=== PATIENT | male | born 1990 | race Caucasian/White ===

== ENCOUNTER 2021-06-18 16:16 | Inpatient (IN) | payer OTHER ==
[2021-06-18 16:59] VITALS: BMI 21.2
[2021-06-18] MEDS ORDERED: MENTHOL/PHENOL 1 EACH UD MM PRN (19:31)
[2021-06-18] MEDS ORDERED: ONDANSETRON *ODT* 4 MG TABLET SL PRN (19:31)
[2021-06-18] MEDS ORDERED: METHOCARBAMOL 500 MG TABLET PO PRN (19:31)
[2021-06-18] MEDS ORDERED: IBUPROFEN 400 MG TABLET (FP) PO PRN (19:31)
[2021-06-18] MEDS ORDERED: BISMUTH SUBSALICYLATE 524 MG/30 ML PO PRN (19:31)
[2021-06-18] MEDS ORDERED: MAGNESIUM HYDROX 2400MG/30ML ORAL SUSPENSION 30 ML CUP PO PRN (19:31)
[2021-06-18] MEDS ORDERED: LOPERAMIDE HCL 2 MG CAPSULE PO PRN (19:31)
[2021-06-18] MEDS ORDERED: ACETAMINOPHEN 325 MG TABLET (FP) PO PRN ×2 (19:31)
[2021-06-18] MEDS ORDERED: MAGNESIUM CITRATE 300 ML BOTTLE PO PRN (19:31)
[2021-06-18] MEDS ORDERED: MAG HYDROX/AL HYDROX/SIMETH 30 ML UNIT-DOSE CUP PO PRN (19:31)
[2021-06-18] MEDS ORDERED: chlordiazePOXIDE HCL 25 MG CAPSULE PO PRN (19:33)
[2021-06-18] MEDS ORDERED: chlordiazePOXIDE HCL 25 MG CAPSULE PO ONE (19:33)
[2021-06-18] MEDS ORDERED: BUPRENORPHINE HCL 2 MG TAB.SUBL SL SCH (19:45)
[2021-06-18] MEDS ORDERED: chlordiazePOXIDE HCL 25 MG CAPSULE ONE (21:00)
[2021-06-18] MEDS ORDERED: QUEtiapine FUMARATE 100 MG TABLET (FP) PO ONE (21:43)
[2021-06-18] MEDS: THIAMINE HCL 100 MG TABLET (FP) PO SCH (21:59)
[2021-06-18] MEDS: chlordiazePOXIDE HCL 25 MG CAPSULE PO SCH (22:08)
[2021-06-19] MEDS: chlordiazePOXIDE HCL 25 MG CAPSULE PO SCH ×4 (05:37→22:16)
[2021-06-19] MEDS: PRENATAL VITAMINS W/ FOLIC ACID TABLET (FP) PO SCH (10:08)
[2021-06-19] MEDS: BUPRENORPHINE/NALOXONE 2 MG/0.5 MG FILM PACKET SL SCH ×5 (10:11→22:18)
[2021-06-19] MEDS: NICOTINE 10 MG CARTRIDGE (INHALER) IH PRN ×2 (18:24→22:35)
[2021-06-19] MEDS: QUEtiapine FUMARATE 100 MG TABLET (FP) PO SCH (22:18)
[2021-06-19] MEDS: THIAMINE HCL 100 MG TABLET (FP) PO SCH (22:18)
[2021-06-20] MEDS: chlordiazePOXIDE HCL 25 MG CAPSULE PO SCH ×4 (06:17→22:09)
[2021-06-20] MEDS: BUPRENORPHINE/NALOXONE 2 MG/0.5 MG FILM PACKET SL SCH ×4 (10:34→22:09)
[2021-06-20] MEDS: PRENATAL VITAMINS W/ FOLIC ACID TABLET (FP) PO SCH (10:34)
[2021-06-20 11:09] LABS: SARS-CoV-2 NAA Not Detected (Not Detected)
[2021-06-20] MEDS: NICOTINE 10 MG CARTRIDGE (INHALER) IH PRN ×2 (14:17→22:09)
[2021-06-20] MEDS: THIAMINE HCL 100 MG TABLET (FP) PO SCH (22:09)
[2021-06-20] MEDS: QUEtiapine FUMARATE 100 MG TABLET (FP) PO SCH (22:09)
[2021-06-21] MEDS ORDERED: chlordiazePOXIDE HCL 10 MG CAPSULE PO PRN
[2021-06-21] MEDS: chlordiazePOXIDE HCL 10 MG CAPSULE PO SCH ×4 (05:35→22:09)
[2021-06-21] MEDS: PRENATAL VITAMINS W/ FOLIC ACID TABLET (FP) PO SCH (10:23)
[2021-06-21] MEDS: BUPRENORPHINE/NALOXONE 4 MG/1 MG FILM PACKET SL SCH ×2 (10:24→20:13)
[2021-06-21] MEDS: NICOTINE 10 MG CARTRIDGE (INHALER) IH PRN ×2 (14:14→21:23)
[2021-06-21] MEDS: QUEtiapine FUMARATE 100 MG TABLET (FP) PO SCH (22:10)
[2021-06-21] MEDS: MELATONIN 5 MG TABLETS PO PRN (22:10)
[2021-06-21] MEDS: THIAMINE HCL 100 MG TABLET (FP) PO SCH (22:10)
[2021-06-22] MEDS: chlordiazePOXIDE HCL 10 MG CAPSULE PO SCH ×2 (06:55→17:54)
[2021-06-22] MEDS: BUPRENORPHINE/NALOXONE 4 MG/1 MG FILM PACKET SL SCH ×2 (10:34→17:54)
[2021-06-22] MEDS: NICOTINE 10 MG CARTRIDGE (INHALER) IH PRN ×3 (10:34→22:00)
[2021-06-22] MEDS: PRENATAL VITAMINS W/ FOLIC ACID TABLET (FP) PO SCH (10:38)
[2021-06-22] MEDS: QUEtiapine FUMARATE 100 MG TABLET (FP) PO SCH (21:59)
[2021-06-22] MEDS: THIAMINE HCL 100 MG TABLET (FP) PO SCH (21:59)
[2021-06-22] MEDS: MELATONIN 5 MG TABLETS PO PRN (22:00)
[2021-06-23] MEDS ORDERED: chlordiazePOXIDE HCL 10 MG CAPSULE PO ONE (05:00)
[2021-06-23 09:13] VITALS: BP 104/69; PULSE 92; TEMP 96.9
[2021-06-23] MEDS: BUPRENORPHINE/NALOXONE 4 MG/1 MG FILM PACKET SL SCH (10:12)
[2021-06-23] MEDS: PRENATAL VITAMINS W/ FOLIC ACID TABLET (FP) PO SCH (10:12)
[2021-06-23] MEDS: NICOTINE 10 MG CARTRIDGE (INHALER) IH PRN (11:02)
== END 2021-06-23 12:32 | disposition home or self-care (01) | DRG 773 ==
LOC: YASAS 16:16 → Y3N 20:21
PROVIDERS: ADMIT Allergy & Immunology; ATTEND Allergy & Immunology
PROC: HZ2ZZZZ Detoxification Services for Substance Abuse Treatment (ICD-10-PCS; principal; 2021-06-18)
DX: F13.230 Sedative, hypnotic or anxiolytic dependence with withdrawal, uncomplicated (principal); F11.20 Opioid dependence, uncomplicated; F41.9 Anxiety disorder, unspecified; F90.9 Attention-deficit hyperactivity disorder, unspecified type; G47.00 Insomnia, unspecified; U07.0 Vaping-related disorder; Z88.8 Allergy status to other drugs, medicaments and biological substances
CPT/HCPCS: C9803-CS; U0003; U0005

== ENCOUNTER 2022-01-19 15:42 | Inpatient (IN) | payer OTHER ==
[2022-01-19 17:53] VITALS: BMI 20.7
[2022-01-19] MEDS ORDERED: ACETAMINOPHEN 325 MG TABLET (FP) PO PRN ×2 (19:46)
[2022-01-19] MEDS ORDERED: MAG HYDROX/AL HYDROX/SIMETH 30 ML UNIT-DOSE CUP PO PRN (19:46)
[2022-01-19] MEDS ORDERED: IBUPROFEN 600 MG TABLET (FP) PO PRN (19:46)
[2022-01-19] MEDS ORDERED: ONDANSETRON *ODT* 4 MG TABLET SL PRN (19:46)
[2022-01-19] MEDS ORDERED: MAGNESIUM CITRATE 300 ML BOTTLE PO PRN (19:46)
[2022-01-19] MEDS ORDERED: BENZOCAINE/MENTHOL (CHLORASEPTIC ) LOZENGE MM PRN (19:46)
[2022-01-19] MEDS ORDERED: DICYCLOMINE HCL 10 MG CAPSULE PO PRN (19:46)
[2022-01-19] MEDS ORDERED: LOPERAMIDE HCL 2 MG CAPSULE PO PRN (19:46)
[2022-01-19] MEDS ORDERED: NALOXONE HCL (KLOXXADO) 8 MG SPRAY NS PRN (19:46)
[2022-01-19] MEDS ORDERED: MAGNESIUM HYDROX 2400MG/30ML ORAL SUSPENSION 30 ML CUP PO PRN (19:46)
[2022-01-19] MEDS ORDERED: IBUPROFEN 400 MG TABLET (FP) PO PRN (19:46)
[2022-01-19] MEDS ORDERED: BISMUTH SUBSALICYLATE 524 MG/30 ML PO PRN (19:46)
[2022-01-19] MEDS ORDERED: LORazepam 1 MG TABLET ONE (20:07)
[2022-01-19] MEDS: LORazepam 1 MG TABLET PO PRN (20:10)
[2022-01-19] MEDS: LORazepam 2 MG TABLET PO SCH (22:51)
[2022-01-19] MEDS: THIAMINE HCL 100 MG TABLET (FP) PO SCH (22:52)
[2022-01-19] MEDS: MELATONIN 5 MG TABLETS PO SCH (22:52)
[2022-01-19] MEDS: NICOTINE 10 MG CARTRIDGE (INHALER) IH PRN (22:57)
[2022-01-20] MEDS: METHOCARBAMOL 500 MG TABLET PO PRN ×3 (01:36→17:25)
[2022-01-20] MEDS: LORazepam 1 MG TABLET PO PRN (03:09)
[2022-01-20] MEDS: LORazepam 2 MG TABLET PO SCH ×4 (06:08→22:24)
[2022-01-20] MEDS: BUPRENORPHINE HCL 2 MG TAB.SUBL SL SCH ×4 (10:16→22:25)
[2022-01-20] MEDS: PRENATAL VITAMINS W/ FOLIC ACID TABLET (FP) PO SCH (10:16)
[2022-01-20 12:25] LABS: HEMATOCRIT 38.4 % (35.4-49); HEMOGLOBIN 12.9 GM/dL (11.7-16.9); MCH 30.9 pg (25.7-33.7); MCHC 33.6 g/dl (32.0-35.9); MEAN CELL VOLUME 91.8 fl (80-96); MEAN PLT VOLUME 8.1 fl (7.5-11.1); PLATELET COUNT 284 10^3/uL (134-434); RBC 4.18 M/mm3 (4.00-5.60); RDW 13.7 % (11.9-15.9); WHITE BLOOD COUNT 4.4 K/mm3 (4.0-10.0)
[2022-01-20 12:44] LABS: ALBUMIN 3.4 g/dl (3.4-5.0); CALCIUM 8.9 mg/dL (8.5-10.1)
[2022-01-20 12:47] LABS: CREATININE 0.7 mg/dL (0.55-1.3)
[2022-01-20] MEDS: NICOTINE 10 MG CARTRIDGE (INHALER) IH PRN ×3 (12:47→21:24)
[2022-01-20 12:49] LABS: BILIRUBIN,TOTAL 0.4 mg/dL (0.2-1); TOT PROT 6.6 g/dl (6.4-8.2)
[2022-01-20] MEDS: QUEtiapine FUMARATE 100 MG TABLET (FP) PO SCH (22:24)
[2022-01-20] MEDS: THIAMINE HCL 100 MG TABLET (FP) PO SCH (22:24)
[2022-01-20] MEDS: MELATONIN 5 MG TABLETS PO SCH (22:24)
[2022-01-21] MEDS: LORazepam 1 MG TABLET PO SCH ×4 (05:38→22:09)
[2022-01-21] MEDS: PRENATAL VITAMINS W/ FOLIC ACID TABLET (FP) PO SCH (10:36)
[2022-01-21] MEDS: METHOCARBAMOL 500 MG TABLET PO PRN (10:37)
[2022-01-21] MEDS: BUPRENORPHINE HCL 2 MG TAB.SUBL SL SCH ×4 (11:41→22:08)
[2022-01-21] MEDS: NICOTINE 10 MG CARTRIDGE (INHALER) IH PRN ×3 (11:42→20:39)
[2022-01-21] MEDS ORDERED: NICOTINE 14 MG/24 HOURS TOPICAL PATCH TD PRN (13:43)
[2022-01-21] MEDS: LORazepam 1 MG TABLET PO PRN ×2 (14:41→20:11)
[2022-01-21] MEDS: NICOTINE POLACRILEX 4 MG GUM BUC PRN (15:07)
[2022-01-21] MEDS ORDERED: BUPRENORPHINE HCL 2 MG TAB.SUBL SL SCH (18:00)
[2022-01-21] MEDS: THIAMINE HCL 100 MG TABLET (FP) PO SCH (22:08)
[2022-01-21] MEDS: QUEtiapine FUMARATE 100 MG TABLET (FP) PO SCH (22:08)
[2022-01-21] MEDS: MELATONIN 5 MG TABLETS PO SCH (22:12)
[2022-01-22] MEDS ORDERED: LORazepam 0.5 MG TABLET PO PRN
[2022-01-22] MEDS: LORazepam 0.5 MG TABLET PO SCH ×4 (06:07→22:03)
[2022-01-22] MEDS: PRENATAL VITAMINS W/ FOLIC ACID TABLET (FP) PO SCH (10:34)
[2022-01-22] MEDS: BUPRENORPHINE HCL 2 MG TAB.SUBL SL SCH ×4 (10:35→22:03)
[2022-01-22] MEDS: METHOCARBAMOL 500 MG TABLET PO PRN (10:35)
[2022-01-22] MEDS: NICOTINE 10 MG CARTRIDGE (INHALER) IH PRN ×3 (11:44→22:06)
[2022-01-22] MEDS: NICOTINE POLACRILEX 4 MG GUM BUC PRN (20:34)
[2022-01-22] MEDS: QUEtiapine FUMARATE 100 MG TABLET (FP) PO SCH (22:02)
[2022-01-22] MEDS: THIAMINE HCL 100 MG TABLET (FP) PO SCH (22:03)
[2022-01-22] MEDS: MELATONIN 5 MG TABLETS PO SCH (22:05)
[2022-01-23] MEDS ORDERED: LORazepam 0.5 MG TABLET PO ONE (05:00)
[2022-01-23] MEDS: METHOCARBAMOL 500 MG TABLET PO PRN (10:29)
[2022-01-23] MEDS: PRENATAL VITAMINS W/ FOLIC ACID TABLET (FP) PO SCH (10:29)
[2022-01-23] MEDS: BUPRENORPHINE HCL 2 MG TAB.SUBL SL SCH ×2 (10:29→13:04)
[2022-01-23] MEDS: NICOTINE 10 MG CARTRIDGE (INHALER) IH PRN (10:30)
[2022-01-23 13:00] VITALS: BP 116/78; PULSE 61; RESP 18; TEMP 98
== END 2022-01-23 14:35 | disposition home or self-care (01) | DRG 773 ==
LOC: YASAS 15:42 → Y6N 21:46
PROVIDERS: ADMIT Allergy & Immunology; ATTEND Surgery
PROC: HZ2ZZZZ Detoxification Services for Substance Abuse Treatment (ICD-10-PCS; principal; 2022-01-19)
DX: F13.230 Sedative, hypnotic or anxiolytic dependence with withdrawal, uncomplicated (principal); F11.20 Opioid dependence, uncomplicated; F10.20 Alcohol dependence, uncomplicated; F12.20 Cannabis dependence, uncomplicated; F17.290 Nicotine dependence, other tobacco product, uncomplicated; F19.282 Other psychoactive substance dependence with psychoactive substance-induced sleep disorder; F19.24 Other psychoactive substance dependence with psychoactive substance-induced mood disorder; F41.9 Anxiety disorder, unspecified; Z56.0 Unemployment, unspecified; Z59.00 Homelessness unspecified; Z28.310 Unvaccinated for COVID-19; Z28.9 Immunization not carried out for unspecified reason
CPT/HCPCS: 36415; 80053; 85027; 86780